=== PATIENT | female | born 1980 | race Caucasian/White ===

== ENCOUNTER 2017-06-01 03:23 | Observation (INO) | payer OTHER ==
[~2017-06-01] VITALS: Ht 154.9 cm; Wt 73.2 kg
--- NOTE | 2017-06-01 03:44 | EKG ---
[address] [address] Test Date: 2017-06-01 Test Time: 03:38:21 Pat Name: DENNIS MENDOZA Department: Room: Gender: F Rangeland Management Specialist: JENNIFER : 1980 Requested By: ROBERTO DUBOIS Order Number: [id number] Reading MD: Measurements Intervals [place] Rate: 69 P: 51 NH: 152 QRS: 45 QRSD: 86 T: 35 QT: 370 QTc: 398 Interpretive Statements SINUS RHYTHM NORMAL ECG RI6.01 Unconfirmed report No previous ECG available for comparison
[2017-06-01] MEDS ORDERED: IV NORMAL SALINE 1,000ML 1,000 ML IV ONE (03:45)
--- NOTE | 2017-06-01 04:02 | PHYS DOC ---
Adult General Chief Complaint Chief Complaint: overdose HPI HPI Patient is a 37 year old female who presents with medication overdose. The patient reports that she had suicidal thoughts & wanted to kill herself. She states approximately 90 minutes prior to presentation, around 0200 this morning , she took 5 tablets of morphine ER 30 mg. She denies ingestion of other prescription or over the counter medications, denies alcohol or street drugs tonight. She reports previous history of suicide attempt by medication overdose. She feels sleepy. Denies shortness of breath, chest pain, vomiting. Review of Systems Review of Systems Constitutional: Denies fever or chills Eyes: Denies change in visual acuity HENT: Denies nasal congestion or sore throat Respiratory: Denies cough or shortness of breath Cardiovascular: Denies chest pain or edema GI: Denies abdominal pain, nausea, vomiting, or diarrhea : Denies dysuria Musculoskeletal: Denies back pain or joint pain Integument: Denies rash or skin lesions Neurologic: Denies headache, focal weakness or sensory changes Psychiatric: Reports depression & suicidal ideation. All other systems were reviewed and found to be within normal limits, except as documented in this note. Current Medications Current Medications Current Medications Medications (Trade) Dose Ordered Sig/Nilda Start Time Stop Time Status Last Admin Dose Admin Sodium Chloride 1,000 ml @ 1,000 mls/hr 1X ONCE 06/01/17 03:45 06/01/17 04:44 UNV Physical Exam Physical Exam Constitutional: Well developed, well nourished, no acute distress, non-toxic appearance. HENT: Normocephalic, atraumatic, bilateral external ears normal, oropharynx moist, nose normal. Eyes: PERRLA 3 mm bilaterally, EOMI, conjunctiva normal, no discharge. Neck: supple, no stridor. Cardiovascular: RRR, no murmurs, no edema. Lungs & Thorax: LCTAB, no wheezing, no respiratory distress. Abdomen: soft, nontender, nondistended. Skin: Warm, dry, no erythema, no rash. Back: No tenderness. Extremities: No tenderness, no edema. Neurologic: Alert and oriented X 3, no facial droop, symmetric strength/ sensation to upper & lower extremities, no focal deficits noted. Psychologic: flat affect EKG EKG interpreted by me: normal sinus rhythm rate 69, no acute ST/T wave changes, normal intervals, no ectopy.[] Radiology/Procedures Radiology/Procedures [] Course & Med Decision Making Course & Med Decision Making Pertinent Labs and Imaging studies reviewed. (See chart for details) The patient presents with overdose & suicidal ideation. EMS brought a pill in a ziplock bag, identified as morphine sulfate extended release 30 mg tab. She is stable here with normal vitals, non-pinpoint pupils. Narcan did not have to be administered. She denies co-ingestion. RN contacted poison control, recommend observation for 16 hours after time of ingestion. Discussed with Dr. Patton who agrees to admit to inpatient status. We initiated psych screening through the [facility] while the patient was here in the ED. She is being admitted in stable condition. [] Dragon Disclaimer Dragon Disclaimer This electronic medical record was generated, in whole or in part, using a voice recognition dictation system. Departure Departure: Impression: Primary Impression: Intentional opiate overdose Additional Impression: Suicide attempt Disposition: 09 ADMITTED INPATIENT Admitting Physician: Terry Patton Condition: STABLE Referrals: KALANI DE LEON APRN (PCP) Problem Qualifiers ROBERTO DUBOIS MD Jun 01, 2017 04:02
[2017-06-01 04:28] LABS: ACETAMIN < 2.0 mcg/mL (10-30); SALIC 1.9 mg/dL (2.8-20.0)
[2017-06-01 04:29] LABS: BARBITURATES NEG (NEG); BENZODIAZEPINES NEG (NEG); CANNABINOIDS NEG (NEG); COCAINE NEG (NEG); METHADONE NEG (NEG); OPIATES POS (NEG); PHENCYCLIDINE NEG (NEG)
[2017-06-01 04:29] LABS: ALBUMIN 3.6 g/dL (3.4-5.0); ALBUMIN/GLOBULIN RATIO 0.9 (1.0-1.7); ALK PHOS 82 U/L (46-116); ALT (SGPT) 26 U/L (14-59); ANION GAP 7 (6-14); AST (SGOT) 17 U/L (15-37); BLOOD UREA NITROGEN 12 mg/dL (7-20); BUN/CREATININE RATIO 20 (6-20); CALCIUM 9.1 mg/dL (8.5-10.1); CARBON DIOXIDE 29 mmol/L (21-32); CHLORIDE 105 mmol/L (98-107); CREATININE 0.6 mg/dL (0.6-1.0); ETHANOL < 10 mg/dL (0-10); GFR 112.5; GLUCOSE 113 mg/dL (70-99); POTASSIUM 3.5 mmol/L (3.5-5.1); SODIUM 141 mmol/L (136-145); TOTAL PROTEIN 7.6 g/dL (6.4-8.2)
[2017-06-01 04:30] LABS: AMPHETAMINE/METHAMPHETAMINE NEG (NEG)
[2017-06-01 04:30] LABS: TOTAL BILIRUBIN < 0.1 mg/dL (0.2-1.0)
[2017-06-01 04:43] LABS: BASO % 0 % (0-3); EOS # 0.2 x10^3/uL (0.0-0.7); EOS % 3 % (0-3); HEMATOCRIT 37.4 % (36.0-47.0); HEMOGLOBIN 12.5 g/dL (12.0-15.5); LYMPH # 3.1 x10^3/uL (1.0-4.8); LYMPH % 39 % (24-48); MEAN CORPUSCULAR HEMOGLOBIN 27 pg (25-35); MEAN CORPUSCULAR HGB CONC 33 g/dL (31-37); MEAN CORPUSCULAR VOLUME 82 fL (79-100); MONO # 0.4 x10^3/uL (0.0-1.1); MONO % 5 % (0-9); NEUT # 4.2 x10^3uL (1.8-7.7); NEUT % 53 % (31-73); PLATELET COUNT 272 x10^3/uL (140-400); RED BLOOD COUNT 4.56 x10^6/uL (3.50-5.40); RED CELL DISTRIBUTION WIDTH 14.9 % (11.5-14.5)
[2017-06-01] MEDS ORDERED: NALOXONE 0.4 MG/ML VIAL. IV PRN (05:00)
[2017-06-01] MEDS ORDERED: ACETAMINOPHEN 325 MG TABLET PO PRN (05:00)
[2017-06-01] MEDS ORDERED: ONDANSETRON PF 4 MG/2 ML VIAL. IV PRN (05:00)
[2017-06-01 07:48] VITALS: BP 131/80
[2017-06-01] MEDS ORDERED: FLU VACC QS2017-18 (36MOS+)/PF 0.5 ML SYRINGE. VAX IM ONE (09:30)
[2017-06-01 09:58] VITALS: BP 131/80
[2017-06-01] MEDS ORDERED: CETI10TA16 PO (10:12)
[2017-06-01] MEDS ORDERED: MULT1TAB52 PO (10:12)
[2017-06-01] MEDS ORDERED: MELO15TA23 PO (10:12)
[2017-06-01] MEDS ORDERED: ASCO-185 PO (10:12)
[2017-06-01] MEDS ORDERED: L.AC1CAP6 PO (10:12)
[2017-06-01] MEDS ORDERED: FLUO20CA16 PO (10:12)
[2017-06-01 11:50] VITALS: BP 108/72
--- NOTE | 2017-06-01 12:08 | HP ---
ADMIT DATE: 06/01/2017 REASON FOR ADMISSION: Suicide gesture. HISTORY OF PRESENT ILLNESS: This is a 37-year-old female who took five 30 mg extended relief morphine tablets about 2:00 a.m. because she just felt so depressed and desperate at that time. She did tell her who became concerned and called EMS. She was seen by the [facility] who feels that she may be okay to go home. However, the patient states that her depression has become very bad over the last few months. She has not seen anyone regarding that. She was continued on the same Prozac dose. She also had weaned herself off of Xanax. She was only taking a half of a 0.25 and has not been taking that for the last few months. 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 Drug use as a teenager including cocaine, methamphetamine and marijuana, but no use since age 17. PSYCHIATRIC HISTORY: The patient was hospitalized at age 15. She states she did take a lot of pills a few years ago, but just observed her at home and she was not hospitalized. ALLERGIES: GABAPENTIN, PREGABALIN, TRIMETHOPRIM AND SULFAMETHOXAZOLE. MEDICATIONS: Prozac 30 mg a day. She had morphine that she took was not hers. Also takes Zyrtec 10 mg a day, meloxicam 15 mg a day, multivitamin 1 mg a day and vitamin C. SOCIAL HISTORY: The patient is . She takes care of a young niece and nephew on a regular basis. She has six children, age 18, 14, 13, 11, 10, and 7. She used to work as a training officer for 11 years. She currently smokes what she describes as a few cigarettes a day because of the cold. No alcohol or drugs. REVIEW OF SYSTEMS: Positive for pain related to orthopedic conditions depression and anxiety. OBJECTIVE: VITAL SIGNS: Blood pressure 131/80, pulse 95, temp 98.3, pulse ox 96% on room air. HEENT: Throat was clear. Her eyes were clear. NECK: Supple. LUNGS: Clear. CARDIOVASCULAR: Regular rhythm and rate. ABDOMEN: Soft, nontender. EXTREMITIES: Without edema, no cords. NEUROLOGIC: She is a little bit groggy, but appropriate, and still is worried about the suicidal ideation and anxiety. LABORATORY DATA: Drug screen positive for opiates. HCG negative. Chemistry was negative. CBC negative. ASSESSMENT: 1. Suicidal gesture. 2. Severe depression. 3. Anxiety. 4. Tobacco use disorder. 5. Former substance abuse as a teenager, recovered. 6. Multiple orthopedic conditions including arthritis, sciatica, tendinitis of her hands and tarsal tunnel of her feet. PLAN: I did broach the subject of hospitalization. She seems willing to try a short-term hospitalization as her depression is severe. We will ask Dr. Orozco to see her and deem whether she is appropriate for a short hospitalization for depression and suicidal gesture. We will continue to observe for any increase in her fatigue, but it has been 8 hours now since she took the morphine but will need to keep a close eye on her still. YODIT SPICER DO DR: BRUNO/chaitanya JOB#: [id number] / [id number]
[2017-06-01 16:03] VITALS: BP 105/60
--- NOTE | 2017-06-01 18:26 | PDOC ---
Exam Note: Julian Note: Please also refer to the separate dictated note~for this date of service dictated separately.~Patient seen individually. Discussed the patient with Nursing staff reviewed the chart.~Reviewed interim history and current functioning. Reviewed vital signs,~Labs/ Radiology~and current medications noted below. Continue current treatment with the changes noted in the dictated addendum note Assessment: Vital Signs: Vital Signs Date Time Temp Pulse Resp B/P (MAP) Pulse Ox O2 Delivery O2 Flow Rate FiO2 06/01/17 16:03 81 20 105/60 (75) 96 06/01/17 11:50 Room Air 06/01/17 09:58 98.3 I&O Intake and Output 06/01/17 07:00 Intake Total 1000 ml Balance 1000 ml IV Total 1000 ml Labs: Laboratory Tests Test 06/01/17 03:50 06/01/17 03:53 06/01/17 05:16 White Blood Count 8.0 x10^3/uL (4.0-11.0) Red Blood Count 4.56 x10^6/uL (3.50-5.40) Hemoglobin 12.5 g/dL (12.0-15.5) Hematocrit 37.4 % (36.0-47.0) Mean Corpuscular Volume 82 fL (79-100) Mean Corpuscular Hemoglobin 27 pg (25-35) Mean Corpuscular Hemoglobin Concent 33 g/dL (31-37) Red Cell Distribution Width 14.9 % (11.5-14.5) H Platelet Count 272 x10^3/uL (140-400) Neutrophils (%) (Auto) 53 % (31-73) Lymphocytes (%) (Auto) 39 % (24-48) Monocytes (%) (Auto) 5 % (0-9) Eosinophils (%) (Auto) 3 % (0-3) Basophils (%) (Auto) 0 % (0-3) Neutrophils # (Auto) 4.2 x10^3uL (1.8-7.7) Lymphocytes # (Auto) 3.1 x10^3/uL (1.0-4.8) Monocytes # (Auto) 0.4 x10^3/uL (0.0-1.1) Eosinophils # (Auto) 0.2 x10^3/uL (0.0-0.7) Basophils # (Auto) 0.0 x10^3/uL (0.0-0.2) Sodium Level 141 mmol/L (136-145) Potassium Level 3.5 mmol/L (3.5-5.1) Chloride Level 105 mmol/L (98-107) Carbon Dioxide Level 29 mmol/L (21-32) Anion Gap 7 (6-14) Blood Urea Nitrogen 12 mg/dL (7-20) Creatinine 0.6 mg/dL (0.6-1.0) Estimated GFR (Cockcroft-Gault) 112.5 BUN/Creatinine Ratio 20 (6-20) Glucose Level 113 mg/dL (70-99) H Calcium Level 9.1 mg/dL (8.5-10.1) Total Bilirubin < 0.1 mg/dL (0.2-1.0) L Aspartate Amino Transferase (AST) 17 U/L (15-37) Alanine Aminotransferase (ALT) 26 U/L (14-59) Alkaline Phosphatase 82 U/L (46-116) Total Protein 7.6 g/dL (6.4-8.2) Albumin 3.6 g/dL (3.4-5.0) Albumin/Globulin Ratio 0.9 (1.0-1.7) L Salicylates Level 1.9 mg/dL (2.8-20.0) L Salicylate Last Dose Date 06/01/2017 Salicylate Last Dose Time 0336 Acetaminophen Level < 2.0 mcg/mL (10-30) L Acetaminophen Last Dose Date Unknown Acetaminophen Last Dose Time Unknown Ethyl Alcohol Level < 10 mg/dL (0-10) Urine Opiates Screen Pos (NEG) Urine Methadone Screen Neg (NEG) Urine Barbiturates Neg (NEG) Urine Phencyclidine Screen Neg (NEG) Urine Amphetamine/Methamphetamine Neg (NEG) Urine Benzodiazepines Screen Neg (NEG) Urine Cocaine Screen Neg (NEG) Urine Cannabinoids Screen Neg (NEG) Urine Ethyl Alcohol Neg (NEG) POC Urine HCG, Qualitative hcg negative (Negative) Current Medications: Meds: Current Medications Sodium Chloride 1,000 ml @ 1,000 mls/hr 1X ONCE IV Last administered on 06/01t 04:12; Start 06/01/17 at 03:45; Stop 06/01/17 at 04:44; Status DC Ondansetron HCl (Zofran) 4 mg PRN Q4HRS PRN IV NAUSEA/VOMITING Last administered on 06/01/17t 16:19; Start 06/01/17 at 05:00; Stop 06/02/17 at 04 :59 Acetaminophen (Tylenol) 650 mg PRN Q4HRS PRN PO FEVER; Start 06/01/17 at 05:00 ; Stop 06/02/17 at 04:59 Naloxone HCl (Narcan) 0.4 mg PRN Q2MIN PRN IV SEE COMMENTS; Start 06/01/17 at 05:00 Influenza Virus Vaccine Quadrival (Fluarix Quad [id number] Syringe) 0.5 ml ONCE ONCE VAX IM ; Start 06/01/17 at 09:30; Stop 06/01/17 at 09:31; Status DC Active Scripts Active Reported Vit C-Cierra Hips 500 mg Chew Tb (Ascorbic Acid/Ascorbate Sodium) 500 Mg Tab.chew 500 Mg PO DAILY Multivitamins (Multivitamin) 1 Each Tablet 1 Each PO DAILY Probiotic (L.acidoph & Paracasei,B.lactis) 1 Each Capsule 1 Each PO DAILY Cetirizine Hcl 10 Mg Tablet 10 Mg PO DAILY Meloxicam 15 Mg Tablet 15 Mg PO DAILY Prozac (Fluoxetine Hcl) 20 Mg Capsule 30 Mg PO DAILY I have reviewed the current psychotropics carefully including drug interactions. Risk benefit ratio favors no change other than as noted in my dictated progress note. Diagnosis: Problems: (1) Major depressive disorder, recurrent episode (2) Suicide attempt RALPH FERRARI MD Jun 01, 2017 18:26
[2017-06-01 22:28] VITALS: BP 95/61
[2017-06-02 00:51] VITALS: BP 101/62
[2017-06-02 02:57] VITALS: BP 116/66
[2017-06-02 06:04] VITALS: BP 95/45
[2017-06-02 06:14] LABS: BASO % 0 % (0-3); EOS # 0.2 x10^3/uL (0.0-0.7); EOS % 2 % (0-3); HEMOGLOBIN 11.3 g/dL (12.0-15.5); LYMPH # 2.8 x10^3/uL (1.0-4.8); LYMPH % 38 % (24-48); MEAN CORPUSCULAR HEMOGLOBIN 27 pg (25-35); MEAN CORPUSCULAR HGB CONC 33 g/dL (31-37); MEAN CORPUSCULAR VOLUME 82 fL (79-100); MONO # 0.4 x10^3/uL (0.0-1.1); MONO % 5 % (0-9); NEUT # 4.1 x10^3uL (1.8-7.7); NEUT % 55 % (31-73); PLATELET COUNT 241 x10^3/uL (140-400); RED BLOOD COUNT 4.15 x10^6/uL (3.50-5.40); WHITE BLOOD COUNT 7.5 x10^3/uL (4.0-11.0)
[2017-06-02 06:20] LABS: CALCIUM 8.5 mg/dL (8.5-10.1); CREATININE 0.6 mg/dL (0.6-1.0); GFR 112.5; POTASSIUM 4.1 mmol/L (3.5-5.1)
[2017-06-02] MEDS ORDERED: MELOXICAM 15 MG TABLET. PO SCH (09:00)
[2017-06-02] MEDS ORDERED: FLU VACC QS2017-18 (36MOS+)/PF 0.5 ML SYRINGE. VAX IM ONE (09:00)
[2017-06-02] MEDS ORDERED: MULTIVITAMIN with MINERAL TABLET. PO SCH (09:00)
[2017-06-02] MEDS ORDERED: FLUoxetine HCL 10 MG CAPSULE PO SCH (09:00)
[2017-06-02] MEDS ORDERED: LACTOBACILLUS RHAMNOSUS GG 1 CAPSULE. PO SCH (09:00)
[2017-06-02] MEDS ORDERED: ASCORBIC ACID 500 MG TABLET PO SCH (09:00)
[2017-06-02] MEDS ORDERED: CETIRIZINE HCL 10 MG TABLET PO SCH (09:00)
[2017-06-02 11:50] VITALS: BP 104/55
--- NOTE | 2017-06-02 13:28 | PDOC ---
SUBJECTIVE: Still depressed and desires inpatient treatment. OBJECTIVE: Problems: Problems Medical Problems: (1) Intentional opiate overdose Status: Acute (2) Suicide attempt Status: Acute Vital Signs: Vital Signs Date Time Temp Pulse Resp B/P (MAP) Pulse Ox O2 Delivery O2 Flow Rate FiO2 06/02/17 06:04 98.5 69 11 95/45 (62) 99 Room Air I & O Intake and Output 06/02/17 06:59 Intake Total 1120 ml Balance 1120 ml Intake Oral 1120 ml # Voids 3 Labs: Laboratory Tests Test 06/01/17 03:50 06/01/17 03:53 06/01/17 05:16 06/01/17 09:20 White Blood Count 8.0 x10^3/uL (4.0-11.0) Red Blood Count 4.56 x10^6/uL (3.50-5.40) Hemoglobin 12.5 g/dL (12.0-15.5) Hematocrit 37.4 % (36.0-47.0) Mean Corpuscular Volume 82 fL (79-100) Mean Corpuscular Hemoglobin 27 pg (25-35) Mean Corpuscular Hemoglobin Concent 33 g/dL (31-37) Red Cell Distribution Width 14.9 % (11.5-14.5) Platelet Count 272 x10^3/uL (140-400) Neutrophils (%) (Auto) 53 % (31-73) Lymphocytes (%) (Auto) 39 % (24-48) Monocytes (%) (Auto) 5 % (0-9) Eosinophils (%) (Auto) 3 % (0-3) Basophils (%) (Auto) 0 % (0-3) Neutrophils # (Auto) 4.2 x10^3uL (1.8-7.7) Lymphocytes # (Auto) 3.1 x10^3/uL (1.0-4.8) Monocytes # (Auto) 0.4 x10^3/uL (0.0-1.1) Eosinophils # (Auto) 0.2 x10^3/uL (0.0-0.7) Basophils # (Auto) 0.0 x10^3/uL (0.0-0.2) Sodium Level 141 mmol/L (136-145) Potassium Level 3.5 mmol/L (3.5-5.1) Chloride Level 105 mmol/L (98-107) Carbon Dioxide Level 29 mmol/L (21-32) Anion Gap 7 (6-14) Blood Urea Nitrogen 12 mg/dL (7-20) Creatinine 0.6 mg/dL (0.6-1.0) Estimated GFR (Cockcroft-Gault) 112.5 BUN/Creatinine Ratio 20 (6-20) Glucose Level 113 mg/dL (70-99) Calcium Level 9.1 mg/dL (8.5-10.1) Total Bilirubin < 0.1 mg/dL (0.2-1.0) Aspartate Amino Transf (AST/SGOT) 17 U/L (15-37) Alanine Aminotransferase (ALT/SGPT) 26 U/L (14-59) Alkaline Phosphatase 82 U/L (46-116) Total Protein 7.6 g/dL (6.4-8.2) Albumin 3.6 g/dL (3.4-5.0) Albumin/Globulin Ratio 0.9 (1.0-1.7) Salicylates Level 1.9 mg/dL (2.8-20.0) Salicylate Last Dose Date 06/01/2017 Salicylate Last Dose Time 0336 Acetaminophen Level < 2.0 mcg/mL (10-30) Acetaminophen Last Dose Date Unknown Acetaminophen Last Dose Time Unknown Ethyl Alcohol Level < 10 mg/dL (0-10) Urine Opiates Screen Pos (NEG) Urine Methadone Screen Neg (NEG) Urine Barbiturates Neg (NEG) Urine Phencyclidine Screen Neg (NEG) Urine Amphetamine/Methamphetamine Neg (NEG) Urine Benzodiazepines Screen Neg (NEG) Urine Cocaine Screen Neg (NEG) Urine Cannabinoids Screen Neg (NEG) Urine Ethyl Alcohol Neg (NEG) Bedside Urine HCG, Qualitative hcg negative (Negative) Nasal Screen MRSA (PCR) Negative (Negative) Test 06/02/17 05:38 White Blood Count 7.5 x10^3/uL (4.0-11.0) Red Blood Count 4.15 x10^6/uL (3.50-5.40) Hemoglobin 11.3 g/dL (12.0-15.5) Hematocrit 34.0 % (36.0-47.0) Mean Corpuscular Volume 82 fL (79-100) Mean Corpuscular Hemoglobin 27 pg (25-35) Mean Corpuscular Hemoglobin Concent 33 g/dL (31-37) Red Cell Distribution Width 15.0 % (11.5-14.5) Platelet Count 241 x10^3/uL (140-400) Neutrophils (%) (Auto) 55 % (31-73) Lymphocytes (%) (Auto) 38 % (24-48) Monocytes (%) (Auto) 5 % (0-9) Eosinophils (%) (Auto) 2 % (0-3) Basophils (%) (Auto) 0 % (0-3) Neutrophils # (Auto) 4.1 x10^3uL (1.8-7.7) Lymphocytes # (Auto) 2.8 x10^3/uL (1.0-4.8) Monocytes # (Auto) 0.4 x10^3/uL (0.0-1.1) Eosinophils # (Auto) 0.2 x10^3/uL (0.0-0.7) Basophils # (Auto) 0.0 x10^3/uL (0.0-0.2) Sodium Level 140 mmol/L (136-145) Potassium Level 4.1 mmol/L (3.5-5.1) Chloride Level 106 mmol/L (98-107) Carbon Dioxide Level 31 mmol/L (21-32) Anion Gap 3 (6-14) Blood Urea Nitrogen 11 mg/dL (7-20) Creatinine 0.6 mg/dL (0.6-1.0) Estimated GFR (Cockcroft-Gault) 112.5 Glucose Level 89 mg/dL (70-99) Calcium Level 8.5 mg/dL (8.5-10.1) Physical Exam: Normal physical exam. depressed mood. ASSESSMENT: as above PLAN: Recommend inpatient treatment for depression and suicidal gesture. Patient is medically stable for transfer to an inpatient psychiatric facility. YODIT SPICER DO Jun 02, 2017 13:28
--- NOTE | 2017-06-02 15:07 | PDOC3 ---
Discharge Summary Visit Information Date of Admission: Jun 01, 2017 Date of Discharge: Jun 02, 2017 Final Diagnosis Problems Medical Problems: (1) Intentional opiate overdose Status: Acute (2) Suicide attempt Status: Acute Problems: (1) Intentional opiate overdose Status: Acute (2) Suicide attempt 3. CHRONIC PAIN 4. DEPRESSION 5. ANXIETYMENT: 1. Suicidal gesture. 2. Severe depression. 3. Anxiety. 4. Tobacco use disorder. 5. Former substance abuse as a teenager, recovered. 6. Multiple orthopedic conditions including arthritis, sciatica, tendinitis of her hands and tarsal tunnel of her feet. Problems: Brief Hospital Course Allergies Allergies Coded Allergies Type Severity Reaction Last Updated Verified gabapentin Allergy Unknown 06/01/17 Yes pregabalin Allergy Unknown 06/01/17 Yes sulfamethoxazole Allergy Unknown 06/01/17 Yes trimethoprim Allergy Unknown 06/01/17 Yes Vital Signs Vital Signs Date Time Temp Pulse Resp B/P (MAP) Pulse Ox O2 Delivery O2 Flow Rate FiO2 06/02/17 11:50 98.6 72 16 104/55 (71) 98 Room Air Lab Results Laboratory Tests Test 06/01/17 03:50 06/01/17 03:53 06/01/17 05:16 06/01/17 09:20 White Blood Count 8.0 x10^3/uL (4.0-11.0) Red Blood Count 4.56 x10^6/uL (3.50-5.40) Hemoglobin 12.5 g/dL (12.0-15.5) Hematocrit 37.4 % (36.0-47.0) Mean Corpuscular Volume 82 fL (79-100) Mean Corpuscular Hemoglobin 27 pg (25-35) Mean Corpuscular Hemoglobin Concent 33 g/dL (31-37) Red Cell Distribution Width 14.9 % (11.5-14.5) Platelet Count 272 x10^3/uL (140-400) Neutrophils (%) (Auto) 53 % (31-73) Lymphocytes (%) (Auto) 39 % (24-48) Monocytes (%) (Auto) 5 % (0-9) Eosinophils (%) (Auto) 3 % (0-3) Basophils (%) (Auto) 0 % (0-3) Neutrophils # (Auto) 4.2 x10^3uL (1.8-7.7) Lymphocytes # (Auto) 3.1 x10^3/uL (1.0-4.8) Monocytes # (Auto) 0.4 x10^3/uL (0.0-1.1) Eosinophils # (Auto) 0.2 x10^3/uL (0.0-0.7) Basophils # (Auto) 0.0 x10^3/uL (0.0-0.2) Sodium Level 141 mmol/L (136-145) Potassium Level 3.5 mmol/L (3.5-5.1) Chloride Level 105 mmol/L (98-107) Carbon Dioxide Level 29 mmol/L (21-32) Anion Gap 7 (6-14) Blood Urea Nitrogen 12 mg/dL (7-20) Creatinine 0.6 mg/dL (0.6-1.0) Estimated GFR (Cockcroft-Gault) 112.5 BUN/Creatinine Ratio 20 (6-20) Glucose Level 113 mg/dL (70-99) Calcium Level 9.1 mg/dL (8.5-10.1) Total Bilirubin < 0.1 mg/dL (0.2-1.0) Aspartate Amino Transf (AST/SGOT) 17 U/L (15-37) Alanine Aminotransferase (ALT/SGPT) 26 U/L (14-59) Alkaline Phosphatase 82 U/L (46-116) Total Protein 7.6 g/dL (6.4-8.2) Albumin 3.6 g/dL (3.4-5.0) Albumin/Globulin Ratio 0.9 (1.0-1.7) Salicylates Level 1.9 mg/dL (2.8-20.0) Salicylate Last Dose Date 06/01/2017 Salicylate Last Dose Time 0336 Acetaminophen Level < 2.0 mcg/mL (10-30) Acetaminophen Last Dose Date Unknown Acetaminophen Last Dose Time Unknown Ethyl Alcohol Level < 10 mg/dL (0-10) Urine Opiates Screen Pos (NEG) Urine Methadone Screen Neg (NEG) Urine Barbiturates Neg (NEG) Urine Phencyclidine Screen Neg (NEG) Urine Amphetamine/Methamphetamine Neg (NEG) Urine Benzodiazepines Screen Neg (NEG) Urine Cocaine Screen Neg (NEG) Urine Cannabinoids Screen Neg (NEG) Urine Ethyl Alcohol Neg (NEG) Bedside Urine HCG, Qualitative hcg negative (Negative) Nasal Screen MRSA (PCR) Negative (Negative) Test 06/02/17 05:38 White Blood Count 7.5 x10^3/uL (4.0-11.0) Red Blood Count 4.15 x10^6/uL (3.50-5.40) Hemoglobin 11.3 g/dL (12.0-15.5) Hematocrit 34.0 % (36.0-47.0) Mean Corpuscular Volume 82 fL (79-100) Mean Corpuscular Hemoglobin 27 pg (25-35) Mean Corpuscular Hemoglobin Concent 33 g/dL (31-37) Red Cell Distribution Width 15.0 % (11.5-14.5) Platelet Count 241 x10^3/uL (140-400) Neutrophils (%) (Auto) 55 % (31-73) Lymphocytes (%) (Auto) 38 % (24-48) Monocytes (%) (Auto) 5 % (0-9) Eosinophils (%) (Auto) 2 % (0-3) Basophils (%) (Auto) 0 % (0-3) Neutrophils # (Auto) 4.1 x10^3uL (1.8-7.7) Lymphocytes # (Auto) 2.8 x10^3/uL (1.0-4.8) Monocytes # (Auto) 0.4 x10^3/uL (0.0-1.1) Eosinophils # (Auto) 0.2 x10^3/uL (0.0-0.7) Basophils # (Auto) 0.0 x10^3/uL (0.0-0.2) Sodium Level 140 mmol/L (136-145) Potassium Level 4.1 mmol/L (3.5-5.1) Chloride Level 106 mmol/L (98-107) Carbon Dioxide Level 31 mmol/L (21-32) Anion Gap 3 (6-14) Blood Urea Nitrogen 11 mg/dL (7-20) Creatinine 0.6 mg/dL (0.6-1.0) Estimated GFR (Cockcroft-Gault) 112.5 Glucose Level 89 mg/dL (70-99) Calcium Level 8.5 mg/dL (8.5-10.1) Brief Hospital Course Ms. Beard is a 37 old [sex] who presented with [ ] HISTORY OF PRESENT ILLNESS: This is a 37-year-old female who took five 30 mg extended relief morphine tablets about 2:00 a.m. because she just felt so depressed and desperate at that time. She did tell her who became concerned and called EMS. [facility] who feels that she may be okay to go home. However, the patient states that her depression has become very bad over the last few months. She has not seen anyone regarding that. She was continued on the same Prozac dose. She also had weaned herself off of Xanax. She was only taking a half of a 0.25 and has not been taking that for the last few months.SHE WAS ADMITTED. sHE WAS SLEEPY BUT AROUSABLE AT ALL TIMES. SHE DESIRES INPATIENT TREATMENT HAS HER DEPRESSION HAS BEEN REFRACTORY TO PROZAC. sHE IS MEDICALLY STABLE FOR TRANSFER WHEN A FACILITY IS AVAILABLE. Discharge Information Condition at Discharge: Improved Disposition/Orders: D/C to Another Facility Dischare Medications Current Medications Sodium Chloride 1,000 ml @ 1,000 mls/hr 1X ONCE IV Last administered on 06/01 04:12; Start 06/01/17 at 03:45; Stop 06/01/17 at 04:44; Status DC Ondansetron HCl (Zofran) 4 mg PRN Q4HRS PRN IV NAUSEA/VOMITING Last administered on 06/01/17 16:19; Start 06/01/17 at 05:00; Stop 06/02/17 at 04 :59; Status DC Acetaminophen (Tylenol) 650 mg PRN Q4HRS PRN PO FEVER; Start 06/01/17 at 05:00 ; Stop 06/02/17 at 04:59; Status DC Naloxone HCl (Narcan) 0.4 mg PRN Q2MIN PRN IV SEE COMMENTS; Start 06/01/17 at 05:00 Influenza Virus Vaccine Quadrival (Fluarix Quad Syringe) 0.5 ml ONCE ONCE VAX IM ; Start 06/01/17 at 09:30; Stop 06/01/17 at 09:31; Status Cancel Influenza Virus Vaccine Quadrival (Fluarix Quad [id number] Syringe) 0.5 ml ONCE ONCE VAX IM Last administered on 06/02/17 11:58; Start 06/02/17 at 09:00; Stop 06/02/17 at 11:40; Status DC Cetirizine HCl (ZyrTEC) 10 mg DAILY PO Last administered on 06/02/17 08:30; Start 06/02/17 at 09:00 Fluoxetine HCl (PROzac) 30 mg DAILY PO Last administered on 06/02/17 08:31; Start 06/02/17 at 09:00 Meloxicam (Mobic) 15 mg DAILY PO Last administered on 06/02/17 08:31; Start 06/02/17 at 09:00 Ascorbic Acid (Vitamin C) 500 mg DAILY PO Last administered on 06/02/17 08:30 ; Start 06/02/17 at 09:00 Lactobacillus Rhamnosus (Culturelle) 1 cap DAILY PO Last administered on 08:30; Start 06/02/17 at 09:00 Multivitamins/ Calcium (Thera-M Plus) 1 tab DAILY PO Last administered on 06/02 08:30; Start 06/02/17 at 09:00 Active Scripts Active Reported Vit C-Cierra Hips 500 mg Chew Tb (Ascorbic Acid/Ascorbate Sodium) 500 Mg Tab.chew 500 Mg PO DAILY Multivitamins (Multivitamin) 1 Each Tablet 1 Each PO DAILY Probiotic (L.acidoph & Paracasei,B.lactis) 1 Each Capsule 1 Each PO DAILY Cetirizine Hcl 10 Mg Tablet 10 Mg PO DAILY Meloxicam 15 Mg Tablet 15 Mg PO DAILY Prozac (Fluoxetine Hcl) 20 Mg Capsule 30 Mg PO DAILY YODIT SPICER DO Jun 02, 2017 15:07
--- NOTE | 2017-06-02 20:26 | CONS ---
DATE OF CONSULTATION: 06/01/2017 This note covers elements not covered in my initial note of 06/01/2017. The patient was seen in ICU bed 3, for this evaluation. Discussed with nursing staff, reviewed the chart CHIEF COMPLAINT: "I don't know why I got depressed and took the overdose, but before I could take it all, I told my to take the rest of the pills away from me. I have mood swings. I get depressed for no reason. I have been on Prozac by my primary care doctor, but it is not keeping the mood swings away." HISTORY OF PRESENT ILLNESS: The patient has been treated at the [facility] in psychotherapy and by her primary care physician on psychotropic medications and most recently has been on Prozac 30 mg a day. She states she has mood swings with periods of getting hopeless, helpless, worthless, depressed and suicidal and other times when she feels she is somewhat hyperalert, somewhat hypomanic. As a teenager, she abused cocaine and methamphetamines, marijuana, but none since age of 17. She states she is also not slept in several days as part of her worsening mood swings. PAST PSYCHIATRIC HISTORY: She states she was suicidal 3 years ago and prior to that at age 14. PAST MEDICAL HISTORY: Sciatica, tendinitis, arthritis. ALLERGIES: Gabapentin, pregabalin, trimethoprim, sulfamethoxazole. FAMILY HISTORY: Positive for bipolar disorder in her mother. SOCIAL HISTORY: The patient lives at home with her who is a INTERIOR HORTICULTURIST. She has 6 children and take care of 2 other children during the day. 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 MENTAL STATUS EXAMINATION: The patient seen individually. She is reasonably oriented. Speech is coherent, abstraction fair, computation reasonable, language function intact. Mood is somewhat dysphoric, anxious, sad. She denies active suicidal ideation, but able to describe in great detail how she could be doing reasonably well and suddenly become extremely depressed, despondent, hopeless, worthless and suicidal, which is what happened early this morning at 2:00 a.m. when she took the overdose of morphine 5 tablets of 30 mg extended release. Attention span somewhat short. Language function intact. Intellect average. Insight good. IMPRESSION: Major depressive disorder, recurrent, probable bipolar 1 disorder, depressed, status post overdose, suicide attempt. Rest of diagnoses as above. PLAN: From a psychiatric standpoint, I have carefully reviewed the patient's history and this suicide attempt. The patient's spontaneous episodes of marked depression, hopelessness are concerning enough that I would recommend she be evaluated as an inpatient and stabilized on psychotropics with her further major depressive disorder and her bipolar disorder. She does have psychosocial stressors and that she has 6 children and 2 others she takes care of, but she denies being overwhelmed by this and certainly this does not seem adequate enough to explain the severity of the overdose prompting admission. Dr. Jones, thank you for the opportunity to participate in your patient's care. We will follow with you. MAN Glory FERRARI MD DR: ANA/chaitanya JOB#: [id number] / [id number]
== END 2017-06-02 16:42 | disposition still patient (30) ==
LOC: ER 03:23 → INTOOBSV 04:49 → ICU 04:49
PROVIDERS: ADMIT Family Medicine; ATTEND Family Medicine
DX: T14.91XA Suicide attempt, initial encounter (principal); T40.2X2A Poisoning by other opioids, intentional self-harm, initial encounter; F41.9 Anxiety disorder, unspecified; G89.29 Other chronic pain; M54.30 Sciatica, unspecified side; M77.9 Enthesopathy, unspecified; Z81.8 Family history of other mental and behavioral disorders; Z23 Encounter for immunization; Z91.5 Personal history of self-harm; F17.210 Nicotine dependence, cigarettes, uncomplicated; F33.9 Major depressive disorder, recurrent, unspecified; M19.90 Unspecified osteoarthritis, unspecified site; Y92.89 Other specified places as the place of occurrence of the external cause; Y93.89 Activity, other specified; Y99.8 Other external cause status
CPT/HCPCS: 36415; 80048; 80053; 80307; 81025; 85025; 87641; 90471; 90686; 93005; 96361; 96374; 99285; G0378; G0379; G0480; J2405; 96360; G0479; J7030

== ENCOUNTER 2017-08-19 07:16 | Emergency (ER) | payer OTHER ==
[~2017-08-19] VITALS: Ht 154.9 cm; Wt 68.0 kg
[~2017-08-19 07:16] MED LIST: ASCO-185 PO; CETI10TA16 PO; FLUO20CA16 PO; L.AC1CAP6 PO; MELO15TA23 PO; MULT1TAB52 PO
--- NOTE | 2017-08-19 07:23 | PHYS DOC ---
Past History Past Medical History: Anxiety, Depression Past Surgical History: No Surgical History Alcohol Use: None Drug Use: Opiates Adult General Chief Complaint Chief Complaint: nausea vomiting diarrhea, abdominal pain HPI HPI Patient is a 37 year old female who presents with nausea vomiting diarrhea and abdominal pain. She states it started on Tuesday after she ate breakfast at [employer] and then later that night had projectile vomiting according to her . She's also had right upper quadrant pain that occurs after she eats and every time after she eats he has loose stools. She denies any blood in her stools or blood in her vomit. She hasn't vomited since Tuesday night. She states she gets this crampy abdominal pain in the right upper/right mid quadrant that lasts for several hours and then resolves by itself. She denies any fevers or chills chest pain or shortness of breath associated with these episodes. She denies any travel outside denies states, or recent antibiotic use. She denies any family members that sick, or sick contacts. Review of Systems Review of Systems Constitutional: Denies fever or chills [] Eyes: Denies change in visual acuity, redness, or eye pain [] HENT: Denies nasal congestion or sore throat [] Respiratory: Denies cough or shortness of breath [] Cardiovascular: No additional information not addressed in HPI [] GI: Positive for abdominal pain, nausea, vomiting, and diarrhea, Denies bloody stools [] : Denies dysuria or hematuria [] Musculoskeletal: Denies back pain or joint pain [] Integument: Denies rash or skin lesions [] Neurologic: Denies headache, focal weakness or sensory changes [] Endocrine: Denies polyuria or polydipsia [] All other systems were reviewed and found to be within normal limits, except as documented in this note. Allergies Allergies Allergies Coded Allergies Type Severity Reaction Last Updated Verified gabapentin Allergy Unknown 06/01/17 Yes pregabalin Allergy Unknown 06/01/17 Yes sulfamethoxazole Allergy Unknown 06/01/17 Yes trimethoprim Allergy Unknown 06/01/17 Yes Physical Exam Physical Exam Constitutional: Well developed, well nourished, no acute distress, non-toxic appearance. [] HENT: Normocephalic, atraumatic, bilateral external ears normal, oropharynx moist, no oral exudates, nose normal. [] Eyes: PERRLA, EOMI, conjunctiva normal, no discharge. [] Neck: Normal range of motion, no tenderness, supple, no stridor. [] Cardiovascular:Heart rate regular rhythm, no murmur [] Lungs & Thorax: Bilateral breath sounds clear to auscultation [] Abdomen: Bowel sounds normal, soft, mild tender to palpation the right upper and right mid abdomen, no rebound or guarding, no masses, no pulsatile masses. [ ] Skin: Warm, dry, no erythema, no rash. [] Back: No tenderness, no CVA tenderness. [] Extremities: No tenderness, no cyanosis, no clubbing, ROM intact, no edema. [] Neurologic: Alert and oriented X 3, normal motor function, normal sensory function, no focal deficits noted. [] Psychologic: Affect normal, judgement normal, mood normal. [] EKG EKG [] Radiology/Procedures Radiology/Procedures PATIENT: DENNIS MENDOZA ACCOUNT: [id number] : 1980 LOCATION: ER AGE: 37 SEX: F EXAM STATUS: REG ER ORD. PHYSICIAN: FRANKO KHAN MD REASON: abd pain PROCEDURE: CT ABD PELV W/ IV CONTRST ONLY PQRS Compliance Statement: One or more of the following individualized dose reduction techniques were utilized for this examination: 1. Automated exposure control 2. Adjustment of the mA and/or kV according to patient size 3. Use of iterative reconstruction technique CT ABD PELV W/ IV CONTRST ONLY Clinical Indication: Right sided abdomen pain, nausea, vomiting, diarrhea, chills x 5 days. Comparison: CT abdomen and pelvis with contrast, September 01, 2012. Technique: Helical CT imaging of the abdomen and pelvis is performed after 75 cc Omnipaque 300 IV contrast. Oral contrast not given. Findings: Lung bases clear. Cardiac size normal. Liver, gallbladder, spleen, pancreas, adrenal glands, abdominal aorta, and kidneys are normal. Tiny cortical cyst lower pole of left kidney. Stomach not well distended. No dilated small bowel. No colon wall thickening. The visualized appendix is normal. There is mild mesenteric adenopathy. No mesenteric induration is seen. Urinary bladder is not well distended accentuating wall thickness. Retroverted uterus. Mild to moderate pelvic free fluid. Disc space narrowing and probably reactive endplate changes of L5/S1. IMPRESSION: 1. Mild mesenteric adenopathy. Lymph nodes may be reactive. 2. Mild to moderate pelvic free fluid. Finding may be physiologic. Electronically signed by: Tirso Williamson MD (08/19/2017 8:28 AM) [id number] DICTATED AND SIGNED BY: TIRSO WILLIAMSON MD DATE: 08/19/17817 CC: FRANKO KHAN MD; TAMAR PALAFOX ~ Impressions: Viral gastroenteritis Course & Med Decision Making Course & Med Decision Making Pertinent Labs and Imaging studies reviewed. (See chart for details) She scan does not show any acute abnormalities. This is likely viral gastroenteritis. She's instructed use of BRAT diet, ODT Zofran as needed. Return precautions given. She is to follow-up with GI if needed. She is to follow-up with primary care physician on Tuesday. Return ER for uncontrolled nausea vomiting, high fevers, abdominal pain or other concerns. Dragon Disclaimer Dragon Disclaimer This electronic medical record was generated, in whole or in part, using a voice recognition dictation system. Departure Departure: Impression: Primary Impression: Nausea and vomiting Disposition: HOME, SELF-CARE Condition: STABLE Referrals: TAMAR PALAFOX (PCP) SHERYL EMERSON MD Patient Instructions: Viral Gastroenteritis Additional Instructions: The CAT scan of your abdomen pelvis did not show any acute abnormalities. You likely have a viral gastroenteritis which should resolve in the next few days. Please push fluids, stay away from spicy her hard it digested foods. Follow-up with her primary care physician within next few days. If not better you can also follow up with Dr. Hudson who is a GI physician. Please call his office and schedule a follow-up appointment. You can use Zofran which is an oral dissolvable tablet every 8 hours as needed for nausea vomiting. You can also try Imodium A-D for diarrhea. Please follow instructions on the bottle. If you develop severe pain, high fevers, generalized weakness, uncontrolled nausea or vomiting, or other concerns, please return back to ER. Scripts Ondansetron (ZOFRAN ODT) 4 Mg Tab.rapdis 1 TAB SL Q8HRS, #8 TAB Prov: FRANKO KHAN MD 08/19/17 Problem Qualifiers Primary Impression: Nausea and vomiting Vomiting type: unspecified Vomiting Intractability: unspecified Qualified Codes: R11.2 - Nausea with vomiting, unspecified FRANKO KHAN MD Aug 19, 2017 07:23
[2017-08-19] MEDS ORDERED: IV NORMAL SALINE 1,000ML 1,000 ML IV SCH (07:33)
[2017-08-19] MEDS ORDERED: MORPHINE SULFATE 2 MG/ML DISP.SYRIN. IV/SQ PRN (07:45)
[2017-08-19] MEDS ORDERED: IOHEXOL 300 MG/ML 75 ML VIAL. IV ONE (08:00)
[2017-08-19] MEDS ORDERED: ONDANSETRON PF 4 MG/2 ML VIAL. IV ONE (08:00)
[2017-08-19 08:03] LABS: BARBITURATES NEG (NEG); BENZODIAZEPINES NEG (NEG); CANNABINOIDS NEG (NEG); COCAINE NEG (NEG); METHADONE NEG (NEG); OPIATES NEG (NEG); PHENCYCLIDINE NEG (NEG)
[2017-08-19 08:09] LABS: AMPHETAMINE/METHAMPHETAMINE NEG (NEG)
[2017-08-19] MEDS ORDERED: MORPHINE SULFATE 4 MG/ML DISP.SYRIN. IV/SQ PRN (08:15)
[2017-08-19 08:16] LABS: BASO % 0 % (0-3); EOS # 0.2 x10^3/uL (0.0-0.7); EOS % 2 % (0-3); HEMATOCRIT 37.4 % (36.0-47.0); HEMOGLOBIN 12.4 g/dL (12.0-15.5); LYMPH # 2.1 x10^3/uL (1.0-4.8); LYMPH % 20 % (24-48); MEAN CORPUSCULAR HEMOGLOBIN 27 pg (25-35); MEAN CORPUSCULAR HGB CONC 33 g/dL (31-37); MEAN CORPUSCULAR VOLUME 81 fL (79-100); MONO # 0.6 x10^3/uL (0.0-1.1); MONO % 6 % (0-9); NEUT # 7.4 x10^3uL (1.8-7.7); NEUT % 72 % (31-73); PLATELET COUNT 270 x10^3/uL (140-400); WHITE BLOOD COUNT 10.3 x10^3/uL (4.0-11.0)
--- NOTE | 2017-08-19 08:31 | RAD ---
PQRS Compliance Statement: One or more of the following individualized dose reduction techniques were utilized for this examination: 1. Automated exposure control 2. Adjustment of the mA and/or kV according to patient size 3. Use of iterative reconstruction technique CT ABD PELV W/ IV CONTRST ONLY Clinical Indication: Right sided abdomen pain, nausea, vomiting, diarrhea, chills x 5 days. Comparison: CT abdomen and pelvis with contrast, September 01, 2012. Technique: Helical CT imaging of the abdomen and pelvis is performed after 75 cc Omnipaque 300 IV contrast. Oral contrast not given. Findings: Lung bases clear. Cardiac size normal. Liver, gallbladder, spleen, pancreas, adrenal glands, abdominal aorta, and kidneys are normal. Tiny cortical cyst lower pole of left kidney. Stomach not well distended. No dilated small bowel. No colon wall thickening. The visualized appendix is normal. There is mild mesenteric adenopathy. No mesenteric induration is seen. Urinary bladder is not well distended accentuating wall thickness. Retroverted uterus. Mild to moderate pelvic free fluid. Disc space narrowing and probably reactive endplate changes of L5/S1. IMPRESSION: 1. Mild mesenteric adenopathy. Lymph nodes may be reactive. 2. Mild to moderate pelvic free fluid. Finding may be physiologic. Electronically signed by: Garry Williamson MD (08/19/2017 8:28 AM) [id number]
[2017-08-19 08:42] LABS: ALBUMIN 3.4 g/dL (3.4-5.0); ALK PHOS 92 U/L (46-116); ALT (SGPT) 54 U/L (14-59); ANION GAP 11 (6-14); AST (SGOT) 42 U/L (15-37); BLOOD UREA NITROGEN 12 mg/dL (7-20); CALCIUM 8.6 mg/dL (8.5-10.1); CARBON DIOXIDE 25 mmol/L (21-32); CHLORIDE 103 mmol/L (98-107); CREATININE 0.6 mg/dL (0.6-1.0); DIRECT BILIRUBIN 0.1 mg/dL (0.0-0.2); GFR 112.5; GLUCOSE 84 mg/dL (70-99); LIPASE 61 U/L (73-393); POTASSIUM 3.5 mmol/L (3.5-5.1); SODIUM 139 mmol/L (136-145); TOTAL BILIRUBIN 0.3 mg/dL (0.2-1.0); TOTAL PROTEIN 7.6 g/dL (6.4-8.2)
[2017-08-19 09:39] LABS: BILIRUBIN,URINE NEG (NEG); CLARITY,URINE HAZY; COLOR,URINE YELLOW; GLUCOSE,URINE NEG (NEG); NITRITE,URINE NEG (NEG); UROBILINOGEN,URINE 0.2 mg/dL (0.2 mg/dL)
[2017-08-19 09:40] LABS: BACTERIA,URINE 0 /HPF (0-FEW); SQUAMOUS EPITHELIAL CELL,UR FEW /LPF
[2017-08-19] MEDS ORDERED: ONDA4TAB10 SL (10:06)
[2017-08-19 10:10] VITALS: BP 101/58
== END 2017-08-19 10:13 | disposition home or self-care (01) ==
LOC: ER 07:16
DX: R11.2 Nausea with vomiting, unspecified (principal); R19.7 Diarrhea, unspecified; R10.11 Right upper quadrant pain; F11.10 Opioid abuse, uncomplicated; Z88.2 Allergy status to sulfonamides; Z88.8 Allergy status to other drugs, medicaments and biological substances; Z88.1 Allergy status to other antibiotic agents
CPT/HCPCS: 36415; 74177; 80048; 80076; 80307; 81001; 81025; 82553; 83605; 83690; 84484; 85025; 85610; 85730; 96361; 96374; 96375; 99285; J2270; J2405; Q9967; G0479; J7030

== ENCOUNTER 2018-03-20 16:50 | Emergency (ER) | payer BC, OTHER ==
[~2018-03-20 16:50] MED LIST changes: +ONDA4TAB10 SL
--- NOTE | 2018-03-20 17:28 | PHYS DOC ---
Past History Past Medical History: Anxiety, Depression Past Surgical History: No Surgical History, , Tubal ligation Smoking: Non-smoker Alcohol Use: None Drug Use: Opiates Adult General Chief Complaint Chief Complaint: ANKLE PROBLEM HPI HPI Patient is a 37 year old female who presents with complaining of right ankle injury prior to arrival to ER. Patient states she twisted her right ankle inward without fall and complaining of pain in lateral malleolus that getting worse with standing up and states she was not able to bearing weight. Patient rated her pain 6 out of 10 with rest and 10/10 with standing up. Patient denies other injuries and focal neurodeficit. Patient does not want to have pain medication before having x-ray. Review of Systems Review of Systems Constitutional: Denies fever or chills [] Eyes: Denies change in visual acuity, redness, or eye pain [] HENT: Denies nasal congestion or sore throat [] Respiratory: Denies cough or shortness of breath [] Cardiovascular: No additional information not addressed in HPI [] GI: Denies abdominal pain, nausea, vomiting, bloody stools or diarrhea [] : Denies dysuria or hematuria [] Musculoskeletal: Denies back pain, reports joint pain [] Integument: Denies rash or skin lesions [] Neurologic: Denies headache, focal weakness or sensory changes [] Endocrine: Denies polyuria or polydipsia [] All other systems were reviewed and found to be within normal limits, except as documented in this note. Allergies Allergies Allergies Coded Allergies Type Severity Reaction Last Updated Verified gabapentin Allergy Unknown 06/01/17 Yes pregabalin Allergy Unknown 06/01/17 Yes sulfamethoxazole Allergy Unknown 06/01/17 Yes trimethoprim Allergy Unknown 06/01/17 Yes Physical Exam Physical Exam Constitutional: Well developed, well nourished, mild distress, non-toxic appearance. [] HENT: Normocephalic, atraumatic. Eyes: PERRLA, EOMI, conjunctiva normal, no discharge. [] Neck: Normal range of motion, no tenderness, supple, no stridor. [] Cardiovascular:Heart rate regular rhythm, no murmur [] Lungs & Thorax: Bilateral breath sounds clear to auscultation [] Skin: Warm, dry, no erythema, no rash. [] Back: No tenderness, no CVA tenderness. [] Extremities: Right ankle with edema and tenderness in lateral malleolus and painful range of motion, no neurovascular deficit no cyanosis, no clubbing, no edema. [] Neurologic: Alert and oriented X 3, normal motor function, normal sensory function, no focal deficits noted. [] Psychologic: Affect normal, judgement normal, mood normal. [] EKG EKG [] Radiology/Procedures Radiology/[place] [address] IMAGING REPORT Signed PATIENT: DENNIS MENDOZA ACCOUNT: [id number] : 1980 LOCATION: ER AGE: 37 SEX: F EXAM STATUS: DEP ER ORD. PHYSICIAN: GONZALO MARSHALL MD REASON: injury PROCEDURE: ANKLE RIGHT 3V History: Fall. Lateral swelling. Comparison: None. Findings: AP, lateral, and oblique views of the right ankle. Lateral ankle soft tissue swelling is seen. No acute fracture or dislocation is identified. Impression: 1. No acute osseous traumatic injury identified. 2. Lateral ankle soft tissue swelling. Electronically signed by: James Ornelas MD (03/20/2018 11:59 PM) [facility] DICTATED AND SIGNED BY: JAMES ORNELAS MD DATE: 03/20/18 5717 CC: GONZALO MARSHALL MD; TAMAR PALAFOX ~ Course & Med Decision Making Course & Med Decision Making Pertinent Imaging studies reviewed. (See chart for details) Evaluation of patient in ER showed 37-year-old female patient with right ankle with edema and tenderness with unremarkable x-ray. Gelcast splint splint was applied in ER and crutches was provided and instructed to follow up with her primary care physician. Dragon Disclaimer Dragon Disclaimer This electronic medical record was generated, in whole or in part, using a voice recognition dictation system. Departure Departure: Impression: Primary Impression: Right ankle sprain Disposition: 01 HOME, SELF-CARE (@1800) Condition: STABLE Referrals: TAMAR PALAFOX (PCP) Patient Instructions: Ankle Sprain Additional Instructions: Apply ice on the affected area Follow-up with your primary care physician in 5-7 days Return to ER if not getting better Scripts Tramadol Hcl (ULTRAM) 50 Mg Tablet 50 MG PO PRN Q6HRS PRN for PAIN, #20 TAB Prov: GONZALO MARSHALL MD 03/20/18 GONZALO MARSHALL MD Mar 20, 2018 17:28
[2018-03-20] MEDS ORDERED: TRAM-48 PO (18:00)
[2018-03-20 18:15] VITALS: BP 126/77
--- NOTE | 2018-03-21 00:02 | RAD ---
History: Fall. Lateral swelling. Comparison: None. Findings: AP, lateral, and oblique views of the right ankle. Lateral ankle soft tissue swelling is seen. No acute fracture or dislocation is identified. Impression: 1. No acute osseous traumatic injury identified. 2. Lateral ankle soft tissue swelling. Electronically signed by: James Jimenes MD (03/20/2018 11:59 PM) [facility]
== END 2018-03-20 18:15 | disposition home or self-care (01) ==
LOC: ER 16:50
DX: S93.491A Sprain of other ligament of right ankle, initial encounter (principal); Z88.8 Allergy status to other drugs, medicaments and biological substances; Z88.1 Allergy status to other antibiotic agents; X50.1XXA Overexertion from prolonged static or awkward postures, initial encounter; Y93.89 Activity, other specified; Y92.89 Other specified places as the place of occurrence of the external cause; Y99.8 Other external cause status
CPT/HCPCS: 73610; 99284

== ENCOUNTER → 2021-09-23 | Day surgery (SDC) | payer BC, OTHER ==
[~2021-09-23] MED LIST changes: +MULT-445 PO; -MULT1TAB52 PO; +TRAM-48 PO
[2021-09-23 11:32] VITALS: BP 129/88
== END | disposition home or self-care (01) ==
LOC: SURG 11:13
PROVIDERS: ATTEND Anesthesiology
DX: M54.16 Radiculopathy, lumbar region (principal); M72.2 Plantar fascial fibromatosis; M79.18 Myalgia, other site; Z98.891 History of uterine scar from previous surgery; Z79.899 Other long term (current) drug therapy
CPT/HCPCS: 99204; G0463